=== PATIENT | female | born 1940 | race Caucasian/White ===

== ENCOUNTER 2021-09-13 11:45 | Emergency (ER) | payer MEDICARE, SELFPAY ==
--- NOTE | ~2021-09-13 | XR_ITS ---
XR wrist LT min 3V 09/13/2021 12:13 Indication: Status post fall. Left wrist pain. Procedure: 4 views left wrist Comparison: No prior studies for comparison. 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 Os teopenia. There is a possible nondisplaced distal radial fracture dorsally on the oblique image. No significant soft tissue abnormality. No foreign bodies. Impression: 1: Possible nondisplaced distal radial fracture dorsally. Recommend conservative therapy with repeat x-rays in 7-to 10 days to assess for change. Reviewed, dictated and finalized at location B. Impression: 1: Possible nondisplaced distal radial fracture dorsally. Recommend conservativ e therapy with repeat x-rays in 7-to 10 days to assess for change.
[2021-09-13 11:56] VITALS: BP 153/77; PULSE 63; RESP 20; TEMP 36.4; O2SAT 99
--- NOTE | 2021-09-13 11:56 | ED.UPPEXIN ---
HPI - Extremity Injury (Upper) General Chief Complaint: Extremity Injury, Upper Stated Complaint: Left Wrist Injury Time Seen by Provider: 09/13/21 12:19 Source: patient and RN notes reviewed Mode of arrival: ambulatory Limitations: no limitations History of Present Illness HPI narrative: 80-year-old female presents with concern for left wrist pain, swelling. Reports yesterday while dancing she fell on the wrist. 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 Reports she took ibuprofen and used ice. MD complaint: injury to: left and wrist Related Data Home Medications Medication Instructions Recorded Confirmed aspirin [Adult Low Dose Aspirin] 81 mg PO DAILY 09/13/21 09/13/21 cholecalciferol (vitamin D3) 50 mcg PO DAILY 09/13/21 09/13/21 [Vitamin D3] irbesartan 75 mg PO DAILY 09/13/21 09/13/21 levothyroxine 150 mcg PO DAILY 09/13/21 09/13/21 meloxicam 15 mg PO DAILY 09/13/21 09/13/21 metoprolol tartrate 25 mg PO DAILY 09/13/21 09/13/21 metoprolol tartrate 50 mg PO HS 09/13/21 09/13/21 rosuvastatin 10 mg PO DAILY 09/13/21 09/13/21 Allergies Allergy/AdvReac Type Severity Reaction Status Date / Time No Known Allergies Allergy Verified 09/13/21 12:04 Review of Systems Review of Systems: CONSTITUTIONAL: Denies malaise, chills, sweats, or fever. SKIN: Denies warmth, redness. Reports swelling to the left wrist, reports of bruise to the left elbow with a small abrasion MUSCULOSKELETAL: Reports left wrist pain and swelling, denies elbow pain NEUROLOGIC: Denies numbness, weakness. All systems reviewed & are unremarkable except as noted in HPI and below PMFSH Comments At time of signature, agree with nursing past medical, surgical, social and family history. There is no relevant family history pertinent to the presenting complaint Exam Narrative: GENERAL: Well-appearing, well-nourished, and in no acute distress. HEAD: Normocephalic, atraumatic. EYES: PERRLA, conjunctivae clear NECK: Supple. CHEST: Speaks in full sentences. No respiratory distress. HEART: Regular rate and rhythm. Normal and equal peripheral pulses. EXTREMITIES: Left wrist, hand, digits have normal sensation, limited range of motion to the wrist and first digit. Moderate wrist edema without erythema or ecchymosis. 4/5 strength with digit flexion and extension. Normal sensation with sensitivity to light touch and pain. Generalized wrist tenderness. No open wounds, no skin tenting, no devitalized tissue or atrophy, no trophic changes, no obvious deformity, alignment normal, nearby joints and structures intact. Distal pulses palpable and equal bilaterally, skin warm, dry, pink. Capillary refill less than 3 seconds. SKIN: Warm, dry, no rash. NEURO: Alert and oriented x3. PSYCH: Normal mood and affect Course Course Emergency Course: Patient informed of radiologist x-ray interpretation and instructed to follow-up with primary Ortho in 7 days for repeat x-ray Patient is aware of diagnosis, understands and agrees to treatment plan. Anticipatory guidance given. Patient agrees to follow-up as directed and is aware of reasons to seek care at the emergency department. Portions of this record may have been created with voice recognition software Vital Signs Vital signs: Reviewed. Procedures Orthopedic Splinting/Casting Injury #1: Splinting/Casting Date: 09/13/21 Splinting/Casting Time: 12:29 Side: left Upper Extremity Injury Location: wrist Splint: customized in ED OCL: short arm Pre-Procedure Neuro Vascular Exam: normal Post-Procedure Neuro Vascular Exam: normal Other Orthopedic Equipment: other (Sling) MDM - Extremity Injury (Upper) MDM Narrative Medical decision making narrative: Patients injury and pain is consistent with musculoskeletal etiology. No signs of neurological or vascular compromise on exam. Compartments and tissues are soft without signs
== END 2021-09-13 12:52 | disposition home or self-care (01) ==
PROVIDERS: Emergency Provider Nurse Practitioner; PCP Internal Medicine
DX: S52.502A Unspecified fracture of the lower end of left radius, initial encounter for closed fracture (principal); W19.XXXA Unspecified fall, initial encounter; Y93.41 Activity, dancing; Z79.82 Long term (current) use of aspirin; I25.10 Atherosclerotic heart disease of native coronary artery without angina pectoris; Z95.5 Presence of coronary angioplasty implant and graft; E78.00 Pure hypercholesterolemia, unspecified; I10 Essential (primary) hypertension; M19.90 Unspecified osteoarthritis, unspecified site; E03.9 Hypothyroidism, unspecified; R73.03 Prediabetes
CPT/HCPCS: 29125; 73110; 99204; A4565; G0463

== ENCOUNTER 2024-03-09 09:10 | Emergency (ER) | payer MEDICARE, SELFPAY ==
[2024-03-09 09:18] VITALS: BP 141/60; PULSE 53; RESP 14; TEMP 36.8; O2SAT 98
--- NOTE | 2024-03-09 09:49 | ED.URI ---
HPI - URI/Sore Throat General Chief Complaint: Upper Respiratory Infection Stated Complaint: Sore Throat History of Present Illness HPI Narrative: Patient presents with a sore throat. No trouble swallowing no drooling. No fever no body aches. No exposure to strep. Patient states she takes Flonase daily and Zyrtec daily for nasal congestion and seasonal allergies. Patient states she returned from a trip to [place] recently and there were several people on the plane coughing. Patient denies any concern for influenza or COVID. Related Data Home Medications Medication Instructions Recorded Confirmed aspirin 81 mg tablet 81 mg PO DAILY 09/13/21 10/19/21 cholecalciferol (vitamin D3) 50 50 mcg PO DAILY 09/13/21 10/19/21 mcg (2,000 unit) capsule (Vitamin D3) irbesartan 75 mg tablet 75 mg PO DAILY 09/13/21 10/19/21 levothyroxine 150 mcg tablet 150 mcg PO DAILY 09/13/21 10/19/21 meloxicam 15 mg tablet 15 mg PO DAILY 09/13/21 10/19/21 metoprolol tartrate 25 mg tablet 25 mg PO DAILY 09/13/21 10/19/21 metoprolol tartrate 50 mg tablet 50 mg PO HS 09/13/21 10/19/21 rosuvastatin 10 mg tablet 10 mg PO DAILY 09/13/21 10/19/21 Allergies Allergy/AdvReac Type Severity Reaction Status Date / Time No Known Allergies Allergy Verified 10/19/21 09:27 Review of Systems Review of Systems: CONSTITUTIONAL: Denies chills, or sweats. Reports fever and generalized body aches EYES: Denies visual changes, redness, or discharge. ENT: Denies otalgia. Reports nasal congestion runny nose and sore throat CARDIOVASCULAR: Denies chest pain, palpitations, or edema. RESPIRATORY: Denies dyspnea. Reports occasional cough GASTROINTESTINAL: Denies abdominal pain, nausea, vomiting, or diarrhea. GENITOURINARY: Denies dysuria or hematuria. SKIN: Denies rash or itching. MUSCULOSKELETAL: Denies back pain, joint pain, or myalgia. Reports generalized body aches NEUROLOGIC: Denies headache, numbness, or weakness. PSYCHIATRIC: Denies anxiety or depression. [facility] Past Medical History Medical History Allergic rhinitis Coronary arteriosclerosis Diabetes Essential hypertension GERD (gastroesophageal reflux disease) Headache History of bleeding disorder bleeds/bruises easily History of cardiac disorder 2 stent placements History of stress test (~2007) Hyperlipidemia Hypothyroidism Liver function test abnormality Osteoporosis Surgical History Surgical History History of heart surgery History of hernia repair (~11/26/15) History of total hysterectomy (~11/26/06) Family History Family History Father Heart disease Mother Hypertension Comments At time of signature, agree with nursing past medical, surgical, social and family history. There is no relevant family history pertinent to the presenting complaint Exam Narrative: The patient is a well-developed, well-nourished in no acute distress. SKIN: Skin is warm and dry without erythema, swelling or exudate. There is good turgor. No tenting. HEAD: Atraumatic. Normocephalic. No temporal or scalp tenderness. EYES: Moist and bright. Sclera and conjunctivae normal. No discharge. PERRLA. Extraocular motions intact. Gross visual acuity intact. EARS: Pinna is normal shape and contour. Clear external auditory canals. TM pearly sterling with good cone of light, no erythema or suppuration. Bilateral cerumen noted no gross hearing deficit. NOSE: pink, moist mucosa with good air movement. Clear rhinorrhea without nasal flaring. Septum midline. Mouth: moist mucous membranes. THROAT; mild erythema noted to posterior oropharynx with moderate postnasal drainage. Without exudate or ulceration.. Uvula midline. Normal movement of soft palate. NECK: Supple and nontender with full range of motion without discomfort. No meningeal signs. LUNGS: Equal and b
== END 2024-03-09 09:59 | disposition home or self-care (01) ==
PROVIDERS: Emergency Provider Nurse Practitioner Family; PCP Internal Medicine
DX: J06.9 Acute upper respiratory infection, unspecified (principal); J02.9 Acute pharyngitis, unspecified; I25.10 Atherosclerotic heart disease of native coronary artery without angina pectoris; E11.9 Type 2 diabetes mellitus without complications; I10 Essential (primary) hypertension; K21.9 Gastro-esophageal reflux disease without esophagitis; E78.5 Hyperlipidemia, unspecified; E03.9 Hypothyroidism, unspecified; M81.0 Age-related osteoporosis without current pathological fracture; Z95.5 Presence of coronary angioplasty implant and graft; Z79.82 Long term (current) use of aspirin
CPT/HCPCS: 87081; 87880; 99213; G0463

== ENCOUNTER 2024-10-20 09:57 | Emergency (ER) | payer MEDICARE, SELFPAY ==
--- NOTE | ~2024-10-20 | XR_ITS ---
EXAMINATION: XR chest 2V DATE: 10/20/2024 10:53 INDICATION: Cough. TECHNIQUE: Frontal and lateral views of the chest were obtained. COMPARISON: None. FINDINGS: There is no pneumonia, pleural effusion, or pneumothorax. The heart size is normal. IMPRESSION: 1. No acute cardiopulmonary disease. Reviewed, dictated and finalized at location A. 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
[2024-10-20 10:02] VITALS: BP 148/58; PULSE 67; RESP 20; TEMP 36.3; O2SAT 98
--- NOTE | 2024-10-20 10:12 | ED.URI ---
HPI - URI/Sore Throat General Chief Complaint: Upper Respiratory Infection Stated Complaint: Cough Time Seen by Provider: 10/20/24 10:17 Source: patient and RN notes reviewed Mode of arrival: ambulatory Limitations: no limitations History of Present Illness HPI Narrative: 84-year-old female presents with concern for positive COVID test at home. Reports she had been feeling sick for about 2 weeks and was placed on antibiotic by her doctor a few days in. Reports her symptoms mostly improved but she continued to have runny nose and postnasal drainage since that time. Reports she decided to take a COVID test last night it was positive at home. She denies fever, body aches, chills, sweats. Reports occasional cough. Denies shortness of breath. MD elicited complaint: cough and sore throat Related Data Home Medications Medication Instructions Recorded Confirmed aspirin 81 mg tablet 81 mg PO DAILY 09/13/21 10/19/21 cholecalciferol (vitamin D3) 50 50 mcg PO DAILY 09/13/21 10/19/21 mcg (2,000 unit) capsule (Vitamin D3) irbesartan 75 mg tablet 75 mg PO DAILY 09/13/21 10/19/21 levothyroxine 150 mcg tablet 150 mcg PO DAILY 09/13/21 10/19/21 meloxicam 15 mg tablet 15 mg PO DAILY 09/13/21 10/19/21 metoprolol tartrate 25 mg tablet 25 mg PO DAILY 09/13/21 10/19/21 metoprolol tartrate 50 mg tablet 50 mg PO HS 09/13/21 10/19/21 rosuvastatin 10 mg tablet 10 mg PO DAILY 09/13/21 10/19/21 Allergies Allergy/AdvReac Type Severity Reaction Status Date / Time No Known Allergies Allergy Verified 10/19/21 09:27 Review of Systems Review of Systems: CONSTITUTIONAL: Denies malaise, chills, sweats, or fever. EYES: Denies visual changes, redness, or discharge. ENT: Reports rhinorrhea, postnasal drainage. Denies congestion, sinus pain, otalgia and sore throat. CARDIOVASCULAR: Denies chest pain, palpitations, or edema. RESPIRATORY: Reports occasional cough. Denies dyspnea. GASTROINTESTINAL: Denies abdominal pain, nausea, vomiting, diarrhea SKIN: Denies rash or itching. MUSCULOSKELETAL: Denies myalgia. NEUROLOGIC: Denies headache. All systems reviewed & are unremarkable except as noted in HPI and below PMFSH Past Medical History Medical History Allergic rhinitis Coronary arteriosclerosis Diabetes Essential hypertension GERD (gastroesophageal reflux disease) Headache History of bleeding disorder bleeds/bruises easily History of cardiac disorder 2 stent placements History of stress test (~2007) Hyperlipidemia Hypothyroidism Liver function test abnormality Osteoporosis Surgical History Surgical History History of heart surgery History of hernia repair (~11/26/15) History of total hysterectomy (~11/26/06) Family History Family History Father Heart disease Mother Hypertension Comments At time of signature, agree with nursing past medical, surgical, social and family history. There is no relevant family history pertinent to the presenting complaint Exam Narrative: GENERAL: Well-appearing, well-nourished, and in no acute distress. HEAD: Normocephalic EYES: PERRLA, conjunctivae clear ENT: Nares clear. Mucous membranes moist. TM pearly [place] with dull light reflex bilaterally; no tragal tenderness. Oropharynx not erythematous without lesions. Tonsils not enlarged and without exudate, no drooling, no hoarseness, no trismus, uvula midline. NECK: Supple. No lymphadenopathy CHEST: Very mild Scattered expiratory wheeze, otherwise Clear to auscultation, breath sounds equal. No rhonchi, rales, or stridor. No respiratory distress, speaks in full sentences. HEART: Regular rate and rhythm. No murmur heard. SKIN: Warm, dry, no rash. NEURO: Alert and oriented x3. PSYCH: Normal mood and affect Course Course Emergency Course: Patient is aware of diagnosis, understands and agrees to treatment plan. Anticipatory guidance given. Patient agrees to follow-up as directed and is aware of reasons to seek care at the emergency department. Portions of this record may have been created with voice recognition software Level of Care: Express Care Visit Vital Signs Vital signs: Reviewed. MDM - URI/Sore Throat MDM Narrative Medical decision making narrative: Differential diagnosis considered: [place] virus, strep pharyngitis, allergic rhinitis, upper respiratory tract infection, sinusitis, rhinosinusitis, nasopharyngitis. viral pharyngitis, otitis media, otitis externa, pneumonia, bronchitis, viral cough syndrome, viral syndrome, and influenza. Exam findings show no acute concerns or changes; patient is non-toxic appearing and is in no distress. Patient is appropriate for outpatient treatment and follow-up. Lab Data Attestation: I reviewed the patient's lab results. Imaging Data My impression: Images reviewed, interpreted by radiologist, agree, see report. Radiologist's impression: EXAMINATION: XR chest 2V DATE: 10/20/2024 10:53 INDICATION: Cough. TECHNIQUE: Frontal and lateral views of the chest were obtained. COMPARISON: None. FINDINGS: There is no pneumonia, pleural effusion, or pneumothorax. The heart size is normal. IMPRESSION: 1. No acute cardiopulmonary disease. Critical Care Time Critical Care Time Critical Care Time: No Discharge Plan Discharge Clinical Impression: COVID Patient Disposition: Home, Self-Care Condition: Stable Instructions: How to Use a Metered-Dose Inhaler (ED), How to Recover from COVID-19 at Home (ED) Additional Instructions: Your rapid COVID test is positive. Your x-ray is normal, you do not have pneumonia Please use inhaler as needed for shortness of breath or cough. Use nasal spray a prescribed before runny nose and postnasal drainage. You can use it up to 3 times a day COVID is a virus, antibiotics are not effective against viruses. Your body has to kill viruses. ? Stay home when you are sick, except to get medical care. ? Stay home until you haven't had a fever for 24 hours. ? If you are self isolating at home where others live, use a separate room and bathroom for sick household members (if possible). Clean any shared rooms as needed, to avoid transmitting the virus. ? Wash your hands often with soap and water for at least 20 seconds, especially after blowing your nose, coughing, or sneezing; going to the bathroom; and before eating or preparing food. ? If soap and water are not available, use an alcohol-based hand medical equipment repairer with at least 60% alcohol. ? Have a supply of clean, disposable face masks. Everyone, no matter their COVID diagnosis, should wear face masks while in the home. - Over the counter medications such as Tylenol every 4 hours, ibuprofen every 6 hours (you can alternate these for maximum effect), Mucinex DM for cough, and psuedoephedrine (you must ask the pharmacist for this) can help relieve symptoms while your body fights off the virus. Watch for symptoms and learn when to seek emergency medical attention. If someone is showing any of these signs, seek emergency medical care immediately: ? Trouble breathing ? Persistent chest pain/pressure ? Confusion ? Inability to wake or stay awake ? Bluish lips or face Call 911 or call ahead to your local emergency room: Notify the production honing machine operator that you are seeking care for someone who has or may have COVID Prescriptions: New albuterol sulfate 90 mcg/actuation HFA aerosol inhaler 2 puff INHALATION QID PRN (Reason: shortness of breath or wheezing) Qty: 8.5 0RF ipratropium bromide 21 mcg (0.03 %) spray,non-aerosol 2 spray NASAL TID PRN (Reason: nasal drainage) Qty: 30 0RF Rx Instructions: administer into each nostril No Action levothyroxine 150 mcg Tablet 150 mcg PO DAILY metoprolol tartrate 50 mg Tablet 50 mg PO HS irbesartan 75 mg Tablet 75 mg PO DAILY Adult Low Dose Aspirin 81 mg Tablet 81 mg PO DAILY metoprolol tartrate 25 mg Tablet 25 mg PO DAILY cholecalciferol (vitamin D3) [Vitamin D3] 50 mcg (2,000 unit) Capsule 50 mcg PO DAILY meloxicam 15 mg Tablet 15 mg PO DAILY rosuvastatin 10 mg Tablet 10 mg PO DAILY Follow-up/Referrals: Efrain,MD Josseline [Primary Care Provider] - Time of Disposition: 11:00
[2024-10-20 10:25] LABS: EDCOVIDSCREEN Positive (Negative)
== END 2024-10-20 11:07 | disposition home or self-care (01) ==
PROVIDERS: Emergency Provider Nurse Practitioner; PCP Internal Medicine
DX: U07.1 COVID-19 (principal); I25.10 Atherosclerotic heart disease of native coronary artery without angina pectoris; E11.9 Type 2 diabetes mellitus without complications; I10 Essential (primary) hypertension; K21.9 Gastro-esophageal reflux disease without esophagitis; E78.5 Hyperlipidemia, unspecified; E03.9 Hypothyroidism, unspecified; M81.0 Age-related osteoporosis without current pathological fracture; Z95.5 Presence of coronary angioplasty implant and graft; Z79.82 Long term (current) use of aspirin
CPT/HCPCS: 71046; 87426; 99213; G0463